=== PATIENT | female | born 1965 | race Caucasian/White ===

== ENCOUNTER 2017-11-30 06:47 | Day surgery (SDC) | END 2017-11-30 12:45 | disposition home or self-care (01) ==

== ENCOUNTER 2018-12-15 21:51 | Emergency (ER) | payer BC ==
[~2018-12-15] VITALS: Ht 154.9 cm; Wt 62.6 kg
[~2018-12-15 21:51] MED LIST: IBUP-1542 PO; NITR-58 PO
[2018-12-15 21:53] VITALS: BP 155/67; PULSE 65; RESP 18; Ht 154.9 cm; Wt 62.6 kg
== END 2018-12-16 01:02 | disposition home or self-care (01) ==
LOC: FTE 21:51
DX: R30.0 Dysuria (principal)
CPT/HCPCS: 81003; Z7502; 99282